=== PATIENT | male | born 1950 | race Asian ===

== ENCOUNTER 2017-07-21 06:07 | Day surgery (SDC) | payer BC, OTHER ==
[~2017-07-21] VITALS: Ht 167.6 cm; Wt 80.8 kg
[2017-07-21 07:03] VITALS: Ht 167.6 cm; Wt 80.8 kg
[2017-07-21] MEDS ORDERED: MIDAZOLAM 1 MG/ML 2 ML INJ ONE (07:12)
[2017-07-21] MEDS ORDERED: PROPOFOL 0 ML ONE (07:12)
[2017-07-21] MEDS ORDERED: MAGN1TAB PO (07:12)
[2017-07-21] MEDS ORDERED: METF-480 PO (07:12)
[2017-07-21] MEDS ORDERED: LEVO150T67 PO (07:12)
[2017-07-21] MEDS ORDERED: FENTAnyl 50 MCG/ML VIAL ONE (07:24)
[2017-07-21] MEDS ORDERED: PROPOFOL 20 ML ONE (07:24)
[2017-07-21 07:37] VITALS: BP 154/88; PULSE 83; RESP 21
--- NOTE | 2017-07-21 08:46 | OPPN ---
Date/Time of Note Date/Time of Note DATE: 07/21/17 TIME: 08:44 Operative Report Preoperative Diagnosis Chronic heartburn Screening Postoperative Diagnosis Gastroesophageal reflux disease Gastritis with erosions Biopsy was positive for H. pylori infection Polyp near the appendix and biopsies were taken Sigmoid polyp was removed using snare and electrocautery Internal hemorrhoids Operation/Procedure Performed Esophagogastroduodenoscopy and biopsy Colonoscopy biopsy polypectomy and clipping Surgeon see signature line property assistant None Anesthesia: MAC Estimated blood loss: none Transfusion Required none Specimen Gastric mucosal biopsy Biopsy of the cecal polyp Sigmoid polyp Grafts/Implants none Complications none RADHIKA CHE MD Jul 21, 2017 08:46
[2017-07-21 08:55] VITALS: BP 140/89; PULSE 66; RESP 16
--- NOTE | 2017-07-21 13:27 | GILP ---
DATE OF PROCEDURE: NAME OF PROCEDURES: 1. Esophagogastroduodenoscopy and biopsy. 2. Colonoscopy, biopsy, polypectomy and clipping. SURGEON: Radhika Capellan MD PREOPERATIVE DIAGNOSES: 1. Chronic heartburn. 2. Screening colonoscopy. POSTOPERATIVE DIAGNOSES: 1. Gastroesophageal reflux disease. 2. Gastritis with erosions. 3. Biopsy was positive for Helicobacter pylori infection. 4. Colonoscopy all the way to the cecum. 5. Polyp in the appendicial orifice and biopsies were taken for histopathology. 6. Sigmoid colon polyp was removed using the snare and electrocautery. 7. Clipping of the polypectomy site was done to prevent bleeding. 8. Internal hemorrhoids. INDICATION FOR THE PROCEDURE: Mr. Alok barraza is a 66-year-old male patient who had chronic heartburn, not responding to therapy. He also needed screening colonoscopy. The procedure and possible complications are well explained to the patient, he understood and consented to the procedure. DESCRIPTION OF PROCEDURE: Under the influence of anesthesia, the gastroscope was carefully introduced into the esophagus and under direct vision, it was advanced to the stomach and through the pylorus into the duodenal bulb and descending duodenum. FINDINGS: ESOPHAGUS: The patient had gastroesophageal reflux disease. The esophageal mucosa was normal. STOMACH: The patient had gastritis with erosions. Biopsy was positive for Helicobacter pylori infection. DUODENUM: Normal. The colonoscope was carefully introduced in the rectum and under direct vision, it was advanced all the way to the cecum. FINDINGS: The patient had a polyp in the appendiceal artificial and biopsies were taken for histopathology. He was noted to have a sigmoid colon polyp and it was removed using the snare and electrocautery. Clipping of the polypectomy site was done to prevent bleeding. He was noted to have internal hemorrhoids. He tolerated the procedures very well and there was no complication from the procedures. At the end of the procedures, he was awake with stable vital signs and he was discharged home to the care of his family. IMPRESSION: Please see postoperative diagnoses. PLAN: 1. Omeprazole 40 mg p.o. b.i.d. for 14 days. 2. Doxycycline 100 mg p.o. b.i.d. for 14 days. 3. Flagyl 500 mg p.o. b.i.d. for 14 days. 4. Pepto-Bismol 2 tablets p.o. q.i.d. for 14 days. 5. Await histopathology reports. 6. The timing for the next colonoscopy will be decided after reading of the biopsy reports. Dictated By: RADHIKA HARTMAN/ANGIE Conf#: [id number] DID#: [id number]
== END 2017-07-21 09:30 | disposition home or self-care (01) ==
LOC: GIL 06:07
PROVIDERS: ATTEND Internal Medicine Gastroenterology
DX: Z12.11 Encounter for screening for malignant neoplasm of colon (principal); D12.5 Benign neoplasm of sigmoid colon; K21.9 Gastro-esophageal reflux disease without esophagitis; K29.70 Gastritis, unspecified, without bleeding; K64.8 Other hemorrhoids
CPT/HCPCS: 43239; 45378; J2250; J3010